=== PATIENT | male | born 1990 | race Caucasian/White ===

== ENCOUNTER 2018-08-03 16:41 | Emergency (ER) | payer BC ==
--- NOTE | 2018-08-03 16:59 | EDM.PDOC ---
ED HPI GENERAL MEDICAL PROBLEM - General Chief Complaint: Upper Extremity Injury/Pain Stated Complaint: FINGER INJURY Time Seen by Provider: 08/03/18 16:43 Source of Information: Reports: Patient History Limitations: Reports: No Limitations - History of Present Illness INITIAL COMMENTS - FREE TEXT/NARRATIVE: HISTORY AND PHYSICAL: History of present illness: Patient is a 28-year-old male who presents to the emergency room with complaints of a laceration to the right palm and fourth digit after slipping while in the shower. He states he had slipped while in the shower and tried to grab onto a metal fermín/frame which resulted in injury. Unsure of his last tetanus immunization. Denies hitting his head or any loss of consciousness. Review of systems: As per history of present illness and below otherwise all systems reviewed and negative. Past medical history: As per history of present illness and as reviewed below otherwise noncontributory. Surgical history: As per history of present illness and as reviewed below otherwise noncontributory. Social history: See social history for further information Family history: As per history of present illness and as reviewed below otherwise noncontributory. Physical exam: General: Well-developed and well-nourished 28-year-old male. Alert and oriented. Nontoxic appearing and in no acute distress. HEENT: Atraumatic, normocephalic, pupils equal and reactive bilaterally, negative for conjunctival pallor or scleral icterus, mucous membranes moist, trachea midline. No drooling or trismus noted. No meningeal signs. No hot potato voice noted. Lungs: Clear to auscultation, breath sounds equal bilaterally, chest nontender. Heart: S1S2, regular rate and rhythm without overt murmur Abdomen: Soft, nondistended, nontender. Skin: 5cm laceration to right palm. Superficial abrasion to 3rd and index finger. Otherwise skin is intact, warm, dry. No lesions or rashes noted. Extremities: Moves all extremities per self without difficulty or deficits, negative for cords or calf pain. Neurovascular unremarkable. Neuro: Awake, alert, oriented. Cranial nerves II through XII unremarkable. Cerebellum unremarkable. Motor and sensory unremarkable throughout. Exam nonfocal. Notes: Chlorhexidine and wound wash were used to thoroughly cleanse and irrigate the area. 1% lidocaine was used to anesthetize the area. Usual customary procedures were followed for suture placement. 4-0, #11 interrupted sutures placed. Nonstick bacitracin dressing applied. Supportive care measures were reviewed and discussed. Voices understanding and is agreeable to plan of care. Denies any further questions or concerns at this time. Diagnostics: X-ray Therapeutics: Tdap, wound care, bacitracin dressing Prescription: None Impression: Laceration Plan: 1. Keep the area clean and dry. Continue to monitor for signs of infection. Sutures to be removed in 7-10 days. 2. Tylenol and/or ibuprofen as needed for pain management. 3. Please follow-up with your primary care provider in the next 1-2 days. Return to the ED as needed and as discussed. Definitive disposition and diagnosis as appropriate pending reevaluation and review of above. Right Hand Pain Score (Numeric/FACES): 4 - Related Data Allergies Allergy/AdvReac Type Severity Reaction Status Date / Time No Known Allergies Allergy Verified 08/03/18 17:04 Home Meds: Home Meds Dextroamphetamine/Amphetamine [Adderall] 30 mg PO BID 08/03/18 [History] Review of Systems - Review of Systems Review Of Systems: ROS reveals no pertinent complaints other than HPI. ED EXAM, GENERAL - Physical Exam Exam: See Below (See dictation) ED TRAUMA EXTREMITY PROCEDURES - Laceration/Wound Repair Right palm Lac/Wound Length In cm: 5 Appearance: Subcutaneous, Linear, Clean Distal NVT: Neuro & Vascular Intact, No Tendon Injury Local Anesthesia - Lidocaine (Xylocaine): 1% Plain Local Anesthetic Volume: Other (6cc) Skin Prep: Chlorhexidine (Hibiciens), Saline, Sterile Drape Saline Irrigation (cc's): 50 Exploration/Debridement/Repair: Wound Explored, No Foreign Material Found Closed With: Sutures Suture Size: 4-0 # of Sutures: 11 Suture Type: Nylon, Interrupted, Simple Drain Placement: No Sterile Dressing Applied: Provider Tetanus Status Addressed: Yes Complications: No Course - Vital Signs Last Recorded V/S: Last Vital Signs Temp 98.5 F 08/03/18 17:05 Pulse 95 08/03/18 17:05 Resp 16 08/03/18 17:05 BP 143/88 H 08/03/18 17:05 Pulse Ox 99 08/03/18 17:05 - Orders/Labs/Meds Orders: Active Orders 24 hr Category Date Time Status Vaccines to be Administered [RC] PER UNIT ROUTINE Care 08/03/18 17:01 Active Hand Comp Min 3V Rt [CR] Stat Exams 08/03/18 17:01 Ordered Meds: Medications Discontinued Medications Generic Name Dose Route Start Last Admin Trade Name Olga Lidia PRN Reason Stop Dose Admin Diphtheria/Tetanus/Acell Pertussis 0.5 ml 08/03/18 17:01 08/03/18 17:16 Adacel IM 08/03/18 17:02 0.5 ml .ONCE ONE Administration Lidocaine HCl 10 ml 08/03/18 17:01 08/03/18 17:16 Xylocaine-Mpf 1% INJECT 08/03/18 17:02 10 ml ONETIME ONE Administration Departure - Departure Time of Disposition: 17:35 Disposition: Home, Self-Care 01 Clinical Impression: Laceration - Discharge Information Referrals: PCP,None [Primary Care Provider] - Forms: ED Department Discharge Additional Instructions: The following information is given to patients seen in the emergency department who are being discharged to home. This information is to outline your options for follow-up care. We provide all patients seen in our emergency department with a follow-up referral. The need for follow-up, as well as the timing and circumstances, are variable depending upon the specifics of your emergency department visit. If you don't have a primary care physician on staff, we will provide you with a referral. We always advise you to contact your personal physician following an emergency department visit to inform them of the circumstance of the visit and for follow-up with them and/or the need for any referrals to a consulting specialist. The emergency department will also refer you to a specialist when appropriate. This referral assures that you have the opportunity for follow-up care with a specialist. All of these measure are taken in an effort to provide you with optimal care, which includes your follow-up. Under all circumstances we always encourage you to contact your private physician who remains a resource for coordinating your care. When calling for follow-up care, please make the office aware that this follow-up is from your recent emergency room visit. If for any reason you are refused follow-up, please contact the [facility] at and asked to speak to the emergency department charge nurse. [facility] [address] [place] [address] [place] [address] [facility] [address] [place] [address] 1. Keep the area clean and dry. Continue to monitor for signs of infection. Sutures to be removed in 7-10 days. 2. Tylenol and/or ibuprofen as needed for pain management. 3. Please follow-up with your primary care provider in the next 1-2 days. Return to the ED as needed and as discussed. - My Orders Last 24 Hours: My Active Orders 08/03/18 17:01 Vaccines to be Administered [RC] PER UNIT ROUTINE Hand Comp Min 3V Rt [CR] Stat - Assessment/Plan Last 24 Hours: My Active Orders 08/03/18 17:01 Vaccines to be Administered [RC] PER UNIT ROUTINE Hand Comp Min 3V Rt [CR] Stat
[2018-08-03] MEDS ORDERED: Diphtheria,Pertussis(Acell),Tetanus Vaccine 0.5 ML Syringe IM ONE (17:01)
[2018-08-03] MEDS ORDERED: Bacitracin Oint 1 GM U/D Packet TOP ONE (17:36)
--- NOTE | 2018-08-03 17:46 | CR ---
INDICATION: Hand laceration. TECHNIQUE: Three views right hand. IMPRESSION: No radiopaque foreign body. No soft tissue air. No bone finding or joint finding of significance. Dictated by Rikki Sanchez MD @ Aug 03 2018 5:43PM Signed by Dr. Rikki Sanchez @ Aug 03 2018 5:44PM
== END 2018-08-03 17:55 | disposition home or self-care (01) ==
LOC: MW.ED 16:41
DX: S61.411A Laceration without foreign body of right hand, initial encounter (principal); S60.412A Abrasion of right middle finger, initial encounter; S60.410A Abrasion of right index finger, initial encounter; Z23 Encounter for immunization; W18.2XXA Fall in (into) shower or empty bathtub, initial encounter
CPT/HCPCS: 12002; 73130; 90471; 90715; 99283; J2001